=== PATIENT | male | born 1985 ===

== ENCOUNTER 2020-11-13 01:28 | Emergency (ER) | payer SELFPAY ==
[2020-11-13 02:28] LABS: BASO # 0.04 (0.02-0.10); EOS # 0.12 (0.04-0.40); EOS % 1.1 % (0.0-4.0); HEMATOCRIT 39.8 % (42.0-52.0); HEMOGLOBIN 14.5 g/dL (13.5-18.0); LYMPH# 3.89 (1.50-4.00); MEAN CELL VOLUME 84 fl (78-100); MEAN CORPUSCULAR HEMOGLOBIN 31 pg (27-31); MEAN CORPUSCULAR HGB CONC 36 g/dL (33-37); MEAN PLATELET VOLUME 10.3 fl (7.4-10.4); MONO # 0.79 (0.20-0.80); NEU # 6.46 (1.40-6.50); PLATELET COUNT 350 K/mm3 (130-400); RED BLOOD COUNT 4.74 M/mm3 (4.20-5.60); RED CELL DISTRIBUTION WIDTH 14.3 % (11.5-14.5); WHITE BLOOD COUNT 11.3 K/mm3 (4.8-10.8)
[2020-11-13 02:44] LABS: ALBUMIN 3.5 g/dL (3.5-5.0); CALCIUM 8.5 mg/dL (8.3-10.5); POTASSIUM 3.7 mmol/L (3.5-5.1); TOTAL BILIRUBIN 0.1 mg/dL (0.2-1.2)
[2020-11-13 03:17] LABS: D-DIMER 0.55 mg/L FEU (0.15-0.50)
[2020-11-13 03:31] LABS: URINE APPEARANCE CLEAR; URINE COLOR YELLOW
[2020-11-13 03:45] LABS: URINE BILIRUBIN NEGATIVE (NEGATIVE); URINE BLOOD NEGATIVE (NEGATIVE); URINE GLUCOSE NEGATIVE (NEGATIVE); URINE KETONE NEGATIVE (NEGATIVE); URINE LEUKOCYTE ESTERASE NEGATIVE (NEGATIVE); URINE MUCUS PRESENT (NOT PRESENT); URINE NITRATE NEGATIVE (NEGATIVE); URINE PROTEIN(semi-quant) NEGATIVE (NEGATIVE); URINE UROBILINOGEN NORMAL (NORMAL); URINE WBC 0-1 /hpf (0-3)
[2020-11-13] MEDS ORDERED: FISH OIL 1000MG1 CAP PO (04:57)
[2020-11-13] MEDS ORDERED: FENOFIBRATE160 MG PO (04:57)
[2020-11-13] MEDS ORDERED: FAMOTIDINE20 MG PO (06:39)
[2020-11-13 07:50] VITALS: BP 135/77
== END 2020-11-13 07:49 | disposition home or self-care (01) ==
LOC: ED 01:28
PROVIDERS: Nurse Practitioner
DX: K21.9 Gastro-esophageal reflux disease without esophagitis (principal); E78.1 Pure hyperglyceridemia; E78.00 Pure hypercholesterolemia, unspecified; R09.1 Pleurisy
CPT/HCPCS: J1885; J2405; J7030; Q9967

== ENCOUNTER 2020-11-15 13:29 | Emergency (ER) | payer SELFPAY ==
[~2020-11-15 13:29] MED LIST: FAMOTIDINE20 MG PO; FENOFIBRATE160 MG PO; FISH OIL 1000MG1 CAP PO
[2020-11-15 14:52] LABS: BASO # 0.06 (0.02-0.10); EOS % 1.2 % (0.0-4.0); HEMATOCRIT 44.4 % (42.0-52.0); HEMOGLOBIN 14.4 g/dL (13.5-18.0); LYMPH# 2.37 (1.50-4.00); MEAN CELL VOLUME 83 fl (78-100); MEAN CORPUSCULAR HEMOGLOBIN 27 pg (27-31); MEAN CORPUSCULAR HGB CONC 32 g/dL (33-37); MEAN PLATELET VOLUME 10.2 fl (7.4-10.4); MONO # 0.57 (0.20-0.80); NEU # 5.13 (1.40-6.50); PLATELET COUNT 378 K/mm3 (130-400); RED BLOOD COUNT 5.34 M/mm3 (4.20-5.60); RED CELL DISTRIBUTION WIDTH 14.1 % (11.5-14.5); WHITE BLOOD COUNT 8.2 K/mm3 (4.8-10.8)
[2020-11-15 15:03] LABS: ALBUMIN 3.9 g/dL (3.5-5.0); POTASSIUM 4.1 mmol/L (3.5-5.1); SODIUM 137 mmol/L (136-145)
[2020-11-15 15:04] LABS: CALCIUM 8.9 mg/dL (8.3-10.5)
[2020-11-15 15:05] LABS: GLUCOSE 84 mg/dL (75-110); TOTAL PROTEIN 7.6 g/dL (6.4-8.3)
[2020-11-15 15:06] LABS: CARBON DIOXIDE 23 mmol/L (22-29)
[2020-11-15 15:07] LABS: TOTAL BILIRUBIN 0.4 mg/dL (0.2-1.2)
[2020-11-15 15:11] LABS: AST-SGOT 24 U/L (5-34)
[2020-11-15 15:12] LABS: ALT/SGPT 38 U/L (0-55)
[2020-11-15 15:18] LABS: TROPONIN-I < 0.03 ng/mL (<0.030)
[2020-11-15 16:10] VITALS: BP 139/82
[2020-11-15] MEDS ORDERED: MEDROL DOSEPAK4 MG PO (16:18)
[2020-11-15] MEDS ORDERED: CYCLOBENZAPRINE10 M1 PO (16:18)
== END 2020-11-15 17:31 | disposition home or self-care (01) ==
LOC: ED 13:29
PROVIDERS: Nurse Practitioner Family
DX: M54.12 Radiculopathy, cervical region (principal); R07.89 Other chest pain; K21.9 Gastro-esophageal reflux disease without esophagitis; E78.5 Hyperlipidemia, unspecified; Z79.899 Other long term (current) drug therapy; Z20.822 Contact with and (suspected) exposure to COVID-19
CPT/HCPCS: J1885; J7030

== ENCOUNTER 2021-01-29 15:08 | Inpatient (IN) | payer SELFPAY ==
[~2021-01-29] VITALS: Ht 172.7 cm; Wt 95.4 kg
[~2021-01-29 15:08] MED LIST changes: +CYCLOBENZAPRINE10 M1 PO; +MEDROL DOSEPAK4 MG PO
[2021-01-29 16:00] LABS: BASO # 0.02 (0.02-0.10); EOS # 0.05 (0.04-0.40); EOS % 0.3 % (0.0-4.0); HEMATOCRIT 43.6 % (42.0-52.0); HEMOGLOBIN 14.1 g/dL (13.5-18.0); LYMPH# 2.92 (1.50-4.00); MEAN CELL VOLUME 85 fl (78-100); MEAN CORPUSCULAR HEMOGLOBIN 28 pg (27-31); MEAN CORPUSCULAR HGB CONC 32 g/dL (33-37); MEAN PLATELET VOLUME 9.9 fl (7.4-10.4); MONO # 0.77 (0.20-0.80); NEU # 10.55 (1.40-6.50); PLATELET COUNT 328 K/mm3 (130-400); RED BLOOD COUNT 5.11 M/mm3 (4.20-5.60); RED CELL DISTRIBUTION WIDTH 13.3 % (11.5-14.5); WHITE BLOOD COUNT 14.3 K/mm3 (4.8-10.8)
[2021-01-29 16:12] LABS: POTASSIUM 3.6 mmol/L (3.5-5.1)
[2021-01-29 16:14] LABS: CALCIUM 9.6 mg/dL (8.3-10.5)
[2021-01-29 16:17] LABS: TOTAL BILIRUBIN 0.4 mg/dL (0.2-1.2)
[2021-01-29 17:24] LABS: URINE WBC 0 /hpf (0-3)
[2021-01-29 17:46] LABS: URINE APPEARANCE CLEAR; URINE BILIRUBIN NEGATIVE (NEGATIVE); URINE BLOOD NEGATIVE (NEGATIVE); URINE COLOR YELLOW; URINE GLUCOSE NEGATIVE (NEGATIVE); URINE KETONE NEGATIVE (NEGATIVE); URINE LEUKOCYTE ESTERASE NEGATIVE (NEGATIVE); URINE NITRATE NEGATIVE (NEGATIVE); URINE PROTEIN(semi-quant) TRACE mg/dL (NEGATIVE); URINE UROBILINOGEN NORMAL (NORMAL)
[2021-01-29 19:00] VITALS: BP 109/66
[2021-01-29 22:29] VITALS: BP 118/74
[2021-01-30 01:27] VITALS: BP 115/69
[2021-01-30 06:17] VITALS: BP 110/70
[2021-01-30 07:06] LABS: POTASSIUM 3.9 mmol/L (3.5-5.1)
[2021-01-30 08:02] LABS: BASO # 0.02 (0.02-0.10); EOS # 0.09 (0.04-0.40); EOS % 0.9 % (0.0-4.0); LYMPH# 2.41 (1.50-4.00); MEAN CELL VOLUME 86 fl (78-100); MEAN CORPUSCULAR HEMOGLOBIN 28 pg (27-31); MEAN CORPUSCULAR HGB CONC 33 g/dL (33-37); MEAN PLATELET VOLUME 10.6 fl (7.4-10.4); MONO # 0.63 (0.20-0.80); NEU # 6.36 (1.40-6.50); PLATELET COUNT 287 K/mm3 (130-400); RED BLOOD COUNT 4.63 M/mm3 (4.20-5.60); RED CELL DISTRIBUTION WIDTH 13.5 % (11.5-14.5); WHITE BLOOD COUNT 9.5 K/mm3 (4.8-10.8)
[2021-01-30 09:45] VITALS: BP 116/74
[2021-01-30] MEDS ORDERED: FLAGYL500 M1 PO (13:49)
[2021-01-30] MEDS ORDERED: CIPRO500 M1 PO (13:49)
[2021-01-30] MEDS ORDERED: MELATIN3 MG PO (13:54)
[2021-01-30] MEDS ORDERED: NORCO 325 MG-51 TA1 PO (13:55)
[2021-01-30 14:06] VITALS: BP 129/80
== END 2021-01-30 14:40 | disposition home or self-care (01) | DRG 392 ==
LOC: ED 15:08 → MED/SURG 17:47
PROVIDERS: ADMIT Nurse Practitioner Family
DX: K57.32 Diverticulitis of large intestine without perforation or abscess without bleeding (principal); K76.0 Fatty (change of) liver, not elsewhere classified; K21.9 Gastro-esophageal reflux disease without esophagitis; E78.00 Pure hypercholesterolemia, unspecified; E78.1 Pure hyperglyceridemia; E78.5 Hyperlipidemia, unspecified
CPT/HCPCS: J0744; J1650; J1885; J2270; J2405; J3490; J7030; Q9967